=== PATIENT | male | born 1945 | race Caucasian/White ===

== ENCOUNTER → 2018-04-23 | Outpatient (REF) | payer MEDICARE, BC ==
[~2018-04-23] MED LIST: ACTOS45 MG PO; BABY ASPIRIN81 MG PO; BACTRIM DS1 TAB PO; BLOOD GLUCOSE MONITO XX; CADUET5 MG/20 MG PO; CEPHALEXIN500 MG PO; DIOVAN HCT160 MG/25 PO; FLUARIX QUADRIV1 IN1 IM; FLUZONE SPLT1 M1 IM; GLIMEPIRIDE4 MG PO; GLYB/METFO5 MG/500 M PO; INSULIN SY0.3 MG/36 SC; JANUVIA50 MG PO; LANTUS100 MG/ML SC; LYRICA50 MG PO; METFORMIN HCL1000 MG PO; METFORMIN1000 MG PO; METFORMIN500 M1 PO; NIASPAN500 MG PO; PIOGLITAZONE HC45 MG PO; SILVADENE1 % EX; SMZ/TMP DS1 TAB PO; ZYRTEC10 MG PO; [UNRECOGNIZED DRUG - SUPPLY] XX
[2018-04-23 09:39] LABS: HEMATOCRIT 37.9 % (39.0-50.0); HEMOGLOBIN 12.6 g/dl (14.0-18.0); MEAN CELL VOLUME 93.3 fL CALC (80.0-100.0); MEAN CORPUSCULAR HGB CONC 33.2 g/L CALC (32.0-36.0); NEUT# 4.06 thou/uL (1.82-7.42); RED BLOOD COUNT 4.06 mill/uL (4.70-6.10); RED CELL DISTRI WIDTH 12.6 % (11.5-15.5)
[2018-04-23 10:04] LABS: ALBUMIN 3.6 g/dL (3.2-5.0); BILIRUBIN, TOTAL 0.4 mg/dL (0.0-1.4); CREATININE 1.4 mg/dL (0.7-1.3); TOTAL PROTEIN 6.2 g/dL (6.3-8.2)
== END | disposition home or self-care (01) ==
LOC: LABSPEC 08:49
PROVIDERS: ATTEND Internal Medicine Hematology & Oncology
DX: C85.90 Non-Hodgkin lymphoma, unspecified, unspecified site (principal)

== ENCOUNTER → 2018-09-22 | Outpatient (REF) | payer MEDICARE, BC ==
[2018-09-22 10:04] LABS: HEMATOCRIT 40.2 % (39.0-50.0); HEMOGLOBIN 13.4 g/dl (14.0-18.0); IMMATURE GRANULOCYTES 1.2 % (0.0-5.0); MEAN CELL VOLUME 94.6 fL CALC (80.0-100.0); MEAN CORPUSCULAR HGB 31.5 pG CALC (26.0-32.0); MEAN CORPUSCULAR HGB CONC 33.3 g/L CALC (32.0-36.0); NEUT# 3.4 thou/uL (1.82-7.42); RED BLOOD COUNT 4.25 mill/uL (4.70-6.10); RED CELL DISTRI WIDTH 12.9 % (11.5-15.5)
[2018-09-22 11:20] LABS: BILIRUBIN, TOTAL 0.6 mg/dL (0.0-1.4); CREATININE 1.4 mg/dL (0.7-1.3); POTASSIUM 4.1 mmol/l (3.5-5.1); TOTAL PROTEIN 6.5 g/dL (6.3-8.2)
== END | disposition home or self-care (01) ==
LOC: LAB 08:35
PROVIDERS: ATTEND Internal Medicine Hematology & Oncology
DX: C85.90 Non-Hodgkin lymphoma, unspecified, unspecified site (principal); Z92.21 Personal history of antineoplastic chemotherapy

== ENCOUNTER → 2018-10-06 | Outpatient (REF) | payer MEDICARE, BC ==
[2018-10-06 09:29] LABS: HEMATOCRIT 40.3 % (39.0-50.0); HEMOGLOBIN 13.3 g/dl (14.0-18.0); IMMATURE GRANULOCYTES 1.1 % (0.0-5.0); MEAN CELL VOLUME 93.5 fL CALC (80.0-100.0); MEAN CORPUSCULAR HGB 30.9 pG CALC (26.0-32.0); NEUT# 2.69 thou/uL (1.82-7.42); RED BLOOD COUNT 4.31 mill/uL (4.70-6.10); RED CELL DISTRI WIDTH 12.3 % (11.5-15.5)
[2018-10-06 10:08] LABS: ALBUMIN 4.3 g/dL (3.2-5.0); BILIRUBIN, TOTAL 0.5 mg/dL (0.0-1.4); CREATININE 1.5 mg/dL (0.7-1.3); TOTAL PROTEIN 6.8 g/dL (6.3-8.2)
== END | disposition home or self-care (01) ==
LOC: LAB 08:31
PROVIDERS: ATTEND Internal Medicine Hematology & Oncology
DX: C85.90 Non-Hodgkin lymphoma, unspecified, unspecified site (principal); Z92.21 Personal history of antineoplastic chemotherapy